=== PATIENT | female | born 1995 | race Asian ===

== ENCOUNTER 2016-09-21 16:58 | Emergency (ER) | payer OTHER ==
[~2016-09-21] VITALS: Ht 157.5 cm; Wt 72.6 kg
[2016-09-21 17:49] LABS: PLATELET COUNT 184 K/uL (152-353)
[2016-09-21 17:51] LABS: POTASSIUM 2.9 mmol/L (3.6-5.2)
== END 2016-09-21 19:04 | disposition home or self-care (01) ==
LOC: ED 16:58
DX: N39.0 Urinary tract infection, site not specified (principal)
CPT/HCPCS: 36415; 80053; 81000; 85027; 87077; 87086; 87088; 87186; 99283